=== PATIENT | male | born 1995 | race Caucasian/White ===

== ENCOUNTER → 2023-03-06 13:44 | Outpatient (BNVA) | payer OTHER, SELFPAY | PROVIDERS: Visit Provider Internal Medicine | DX: M54.9 Dorsalgia, unspecified (principal) | CPT/HCPCS: 99203 ==

== ENCOUNTER → 2023-03-11 10:22 | Outpatient (BNVA) | payer OTHER, SELFPAY | PROVIDERS: Visit Provider Physician Assistant Medical | DX: M54.9 Dorsalgia, unspecified (principal) | CPT/HCPCS: 99213 ==

== ENCOUNTER 2023-03-24 18:55 | Outpatient (REF) | payer OTHER, SELFPAY ==
--- NOTE | ~2023-03-24 | MR_ITS ---
EXAMINATION: MR LUMBAR SPINE WITHOUT CONTRAST CLINICAL INFORMATION: Lifting injury. Low back pain and sciatica. COMPARISON: No relevant prior imaging. TECHNIQUE: MRI of the lumbar spine was obtained using routine sequences without contrast. FINDINGS: Spinal alignment is normal in the sagittal dimension. There are a few small chronic Schmorl's nodes at multiple consecutive levels at the thoracolumbar junction with mild associated disc degeneration. Vertebral heights are otherwise maintained. The tip of the conus medullaris is located at L1. No mass effect on the conus. Visualized distal cord signal intensity is normal. At L1-L2 there is a bulging disc. No canal stenosis. No mass effect on the traversing or foraminal nerve roots. At L2-L3 the annular contour is normal. No canal or neuroforaminal compromise. At L2-L3 the annular contour is normal. No canal or neuroforaminal compromise. At L4-L5 there is a slightly bulging disc. No canal stenosis. No mass effect on the traversing or foraminal nerve roots. At L5-S1 the annular contour is normal. No canal or neuroforaminal compromise. Limited visualization of the retroperitoneal anatomy reveals no abnormal finding. Psoas and paraspinal muscle groups are symmetric. MR/MR lumbar spine wo con IMPRESSION: There are slightly bulging discs at L1-L2 and L4-L5. Otherwise unremarkable examination. No canal stenosis. No mass effect on the traversing or foraminal nerve roots.
== END 2023-03-24 18:56 | disposition home or self-care (01) ==
LOC: HO.MRI 18:55
PROVIDERS: Visit Provider Internal Medicine
DX: M54.50 Low back pain, unspecified (principal)
CPT/HCPCS: 72148

== ENCOUNTER → 2023-03-26 10:10 | Outpatient (BNVA) | payer OTHER, SELFPAY | PROVIDERS: Visit Provider Internal Medicine | DX: S39.012A Strain of muscle, fascia and tendon of lower back, initial encounter (principal); S29.012A Strain of muscle and tendon of back wall of thorax, initial encounter; X58.XXXA Exposure to other specified factors, initial encounter | CPT/HCPCS: 99213 ==

== ENCOUNTER → 2023-04-14 09:13 | Outpatient (BNVA) | payer OTHER, SELFPAY | PROVIDERS: Visit Provider Internal Medicine | DX: M54.50 Low back pain, unspecified (principal) | CPT/HCPCS: 99213 ==

== ENCOUNTER → 2023-05-13 08:54 | Outpatient (BNVA) | payer OTHER, SELFPAY | PROVIDERS: Visit Provider Internal Medicine | DX: M54.50 Low back pain, unspecified (principal) | CPT/HCPCS: 99213 ==